=== PATIENT | female | born 1950 | race Two or more races ===

== ENCOUNTER 2022-01-24 06:28 | Day surgery (SDC) | payer OTHER | END 2022-01-24 14:15 | disposition home or self-care (01) | LOC: AMB-ENDOS 06:28 → CIR.AMB 12:30 → AMB-ENDOS 14:15 | PROVIDERS: ATTEND Surgery | DX: R93.5 Abnormal findings on diagnostic imaging of other abdominal regions, including retroperitoneum (principal) ==

== ENCOUNTER 2022-03-12 11:56 | Inpatient (IN) | payer OTHER ==
[~2022-03-12] VITALS: Ht 165.1 cm; Wt 58.1 kg
[2022-03-12] MEDS ORDERED: SYNTHROID100 MCG PO (14:05)
[2022-03-12] MEDS ORDERED: CARVEDILOL6.25 MG PO (14:06)
[2022-03-12] MEDS ORDERED: LOSARTAN PO (14:07)
[2022-03-15] MEDS ORDERED: COZAAR25 MG (16:26)
[2022-03-18] MEDS ORDERED: INTESTINEX680 M1 PO (13:47)
[2022-03-18] MEDS ORDERED: OXYC1TAB9 PO (13:47)
[2022-03-18] MEDS ORDERED: GABAPENTIN300 MG PO (13:47)
[2022-03-18] MEDS ORDERED: SIMETHICONE80 MG PO (13:48)
== END 2022-03-18 14:31 | disposition home or self-care (01) | DRG 330 ==
LOC: SURH 03-15 05:50 → O/R 03-15 05:50 → SURH 03-15 07:00 → EDBD 03-15 12:30 → SURH 03-18 14:31
PROVIDERS: ADMIT Surgery; ATTEND Surgery
PROC: 07BB4ZZ Excision of Mesenteric Lymphatic, Percutaneous Endoscopic Approach (ICD-10-PCS; 2022-03-15)
PROC: 0DTF4ZZ Resection of Right Large Intestine, Percutaneous Endoscopic Approach (ICD-10-PCS; principal; 2022-03-15 07:00)
DX: C18.0 Malignant neoplasm of cecum (principal); K62.5 Hemorrhage of anus and rectum; R59.0 Localized enlarged lymph nodes; D12.1 Benign neoplasm of appendix; D64.9 Anemia, unspecified; R93.5 Abnormal findings on diagnostic imaging of other abdominal regions, including retroperitoneum; K57.30 Diverticulosis of large intestine without perforation or abscess without bleeding; Z20.822 Contact with and (suspected) exposure to COVID-19; I10 Essential (primary) hypertension; E83.42 Hypomagnesemia

== ENCOUNTER 2023-04-10 06:28 | Day surgery (SDC) | payer OTHER ==
[~2023-04-10 06:28] MED LIST: CARVEDILOL6.25 MG PO; COZAAR25 MG; GABAPENTIN300 MG PO; INTESTINEX680 M1 PO; LOSARTAN PO; OXYC1TAB9 PO; SIMETHICONE80 MG PO; SYNTHROID100 MCG PO
== END 2023-04-10 12:30 | disposition home or self-care (01) ==
LOC: AMB-ENDOS 06:28
PROVIDERS: ATTEND Surgery
DX: C18.0 Malignant neoplasm of cecum (principal); K62.5 Hemorrhage of anus and rectum; K57.30 Diverticulosis of large intestine without perforation or abscess without bleeding; D64.9 Anemia, unspecified